=== PATIENT | female | born 1970 | race Two or more races ===

== ENCOUNTER 2019-06-23 11:46 | Emergency (ER) | payer MEDICAID ==
[~2019-06-23] VITALS: Ht 167.6 cm; Wt 70.3 kg
[2019-06-23] MEDS ORDERED: HYDROCODONE/APAP 10-325 MG TABLET ONE (12:15)
[2019-06-23] MEDS ORDERED: predniSONE 10 MG TABLET ONE (12:15)
[2019-06-23] MEDS ORDERED: predniSONE 20 MG TABLET PO ONE (12:15)
[2019-06-23] MEDS ORDERED: HYDROCODONE/APAP 10-325 MG TABLET PO ONE (12:15)
[2019-06-23] MEDS ORDERED: predniSONE 50 MG TABLET ONE (12:16)
--- NOTE | 2019-06-23 12:25 | NUR ---
Patient discharged to home in stable conditon. Written and verbal after care instructions given. Patient verbalizes understanding of instructions.pt with , not driving.
== END 2019-06-23 12:26 | disposition home or self-care (01) ==
LOC: ER 11:46
DX: M54.41 Lumbago with sciatica, right side (principal)
CPT/HCPCS: 99283; J7512 ×2; A4663

== ENCOUNTER 2019-06-26 12:02 | Emergency (ER) | payer MEDICAID ==
[~2019-06-26] VITALS: Ht 167.6 cm; Wt 79.4 kg
--- NOTE | 2019-06-26 12:07 | NUR ---
PATIENT BROUGHT IN BY [facility] FOR UNCONTROLLED BACK PAIN. PATIENT WAS PREVIOUSLY IN THE ER FOR SAME BACK PAIN BROUGHT MRI RESULTS FROM PREVIOUS VISIT. PATIENT REPORTED TAKING VICODIN AT HOME.
--- NOTE | 2019-06-26 12:14 | NUR ---
Ronni zayas in [facility] - 06/26/19 at 1228 by SYEDA REPORT GIVEN AT TO OCTOBER RN. PATIENT GOING TO ROOM 303.
--- NOTE | 2019-06-26 12:28 | NUR ---
PATIENT TO BE SEEN BY DOCTOR GUSTAVO
[2019-06-26] MEDS ORDERED: HYDROMORPHONE 1 MG/1 ML DISP.SYRIN IM ONE (12:30)
[2019-06-26] MEDS ORDERED: ONDANSETRON 4 MG/2 ML VIAL IM ONE (12:30)
[2019-06-26] MEDS ORDERED: ONDANSETRON 4 MG/2 ML VIAL ONE (12:31)
[2019-06-26] MEDS ORDERED: HYDROMORPHONE 2 MG/1 ML DISP.SYRIN ONE (12:31)
--- NOTE | 2019-06-26 12:45 | NUR ---
PATIENT REFUSING LAB DRAW FOR TEST. UNABLE TO DO RADIOLOGY EXAM IF THERE IS NO TEST DONE.
[2019-06-26] MEDS ORDERED: HYDROCODONE/APAP 10-325 MG TABLET ONE (13:04)
[2019-06-26 13:05] LABS: *URINE HCG, QUAL NEGATIVE (NEGATIVE)
[2019-06-26] MEDS ORDERED: HYDROCODONE/APAP 10-325 MG TABLET PO ONE (13:15)
[2019-06-26] MEDS ORDERED: KETOROLAC TROMETHAMINE 60 MG INJ IM ONE ×2 (13:15→14:57)
--- NOTE | 2019-06-26 13:52 | NUR ---
PENDING RADIOLOGY RESULTS
[2019-06-26] MEDS ORDERED: HYDROMORPHONE 1 MG/1 ML DISP.SYRIN IV ONE (14:30)
[2019-06-26] MEDS ORDERED: ONDANSETRON 4 MG/2 ML VIAL IV ONE (14:30)
--- NOTE | 2019-06-26 14:44 | NUR ---
CALLED RADIOLOGY PENDING RESULT READINGS
--- NOTE | 2019-06-26 15:10 | NUR ---
PATIENT GIVEN COPY OF CT RESULTS.
--- NOTE | 2019-06-26 15:15 | NUR ---
DISCHARGE PAPER WORK GIVEN AND PRESCRIPTIONS.SIGNED AND UNDERSTOOD AT BEDSIDE.
== END 2019-06-26 15:19 | disposition home or self-care (01) ==
LOC: ER 12:02
DX: M54.41 Lumbago with sciatica, right side (principal)
CPT/HCPCS: 72192; 84703; 96372 ×3; 99284; J1170; J1885; J2405; A4663

== ENCOUNTER 2019-08-11 09:50 | Emergency (ER) | payer MEDICAID ==
[~2019-08-11] VITALS: Ht 167.6 cm; Wt 74.8 kg
--- NOTE | 2019-08-11 10:34 | NUR ---
Patient discharged to home in stable conditon. Written and verbal after care instructions given. Patient verbalizes understanding of instructions. Patient ambulated with stable gait.
[2019-08-11 10:36] VITALS: BP 138/83
== END 2019-08-11 10:34 | disposition home or self-care (01) ==
LOC: ER 09:50
DX: K08.89 Other specified disorders of teeth and supporting structures (principal)
CPT/HCPCS: A4663

== ENCOUNTER 2019-09-26 21:23 | Emergency (ER) | payer MEDICAID ==
[~2019-09-26] VITALS: Ht 162.6 cm; Wt 72.6 kg
[2019-09-26] MEDS ORDERED: HYDROCODONE/APAP 5-325MG TABLET PO ONE (21:45)
--- NOTE | 2019-09-26 21:45 | NUR ---
PATIENT WAS MSE BY DR NOWAK IN ROOM 05A.
[2019-09-26] MEDS ORDERED: HYDROCODONE/APAP 5-325MG TABLET ONE (21:49)
[2019-09-26] MEDS ORDERED: ONDANSETRON 4 MG/2 ML VIAL ONE (22:03)
[2019-09-26] MEDS ORDERED: MORPHINE SULFATE 4 MG/1 ML DISP.SYRIN ONE (22:03)
[2019-09-26] MEDS ORDERED: ONDANSETRON ODT 4 MG TAB.RAPDIS ONE (22:08)
[2019-09-26] MEDS ORDERED: KETOROLAC TROMETHAMINE 30 MG INJ IM ONE (22:45)
[2019-09-26] MEDS ORDERED: ONDANSETRON ODT 4 MG TAB.RAPDIS SL ONE (22:45)
[2019-09-26] MEDS ORDERED: MORPHINE SULFATE 4 MG/1 ML DISP.SYRIN IM ONE (22:45)
[2019-09-26] MEDS ORDERED: KETOROLAC TROMETHAMINE 30 MG INJ ONE (22:50)
[2019-09-26] MEDS ORDERED: LIDOCAINE 5% PATCH TD ONE ×2 (23:15→23:27)
--- NOTE | 2019-09-26 23:41 | NUR ---
Patient discharged to home in stable condition. Written and verbal after care instructions given. Normal steady gait. Made aware of test results. Patient verbalizes understanding of instructions. Stressed follow up or return to ER for worsening s/s.
[2019-09-26 23:44] VITALS: BP 128/69
== END 2019-09-26 23:45 | disposition home or self-care (01) ==
LOC: ER 21:24
DX: T14.90XA Injury, unspecified, initial encounter (principal); S39.92XA Unspecified injury of lower back, initial encounter; S00.03XA Contusion of scalp, initial encounter; W01.0XXA Fall on same level from slipping, tripping and stumbling without subsequent striking against object, initial encounter; Y92.039 Unspecified place in apartment as the place of occurrence of the external cause; G89.29 Other chronic pain; M54.30 Sciatica, unspecified side; H91.90 Unspecified hearing loss, unspecified ear; R51 Headache; R40.2362 Coma scale, best motor response, obeys commands, at arrival to emergency department; R40.2142 Coma scale, eyes open, spontaneous, at arrival to emergency department; R40.2252 Coma scale, best verbal response, oriented, at arrival to emergency department
CPT/HCPCS: 70450; 72220; 96372 ×2; 99284; J1885; J2270; J2405; A4663; Q0162

== ENCOUNTER 2019-11-09 13:06 | Emergency (ER) | payer MEDICAID ==
[~2019-11-09] VITALS: Ht 167.6 cm; Wt 74.8 kg
--- NOTE | 2019-11-09 13:49 | NUR ---
[email or web address], medical screening exam in progress
[2019-11-09] MEDS ORDERED: CLINDAMYCIN HCL 150 MG CAPSULE PO ONE (14:00)
[2019-11-09] MEDS ORDERED: HYDROCODONE/APAP 5-325MG TABLET PO ONE (14:00)
[2019-11-09] MEDS ORDERED: IBUPROFEN 800 MG TABLET PO ONE (14:00)
[2019-11-09] MEDS ORDERED: HYDROCODONE/APAP 5-325MG TABLET ONE (14:05)
[2019-11-09] MEDS ORDERED: CLINDAMYCIN HCL 300 MG CAPSULE ONE (14:05)
[2019-11-09] MEDS ORDERED: IBUPROFEN 800 MG TABLET ONE (14:06)
[2019-11-09] MEDS ORDERED: IV NORMAL SALINE 1000 ML BAG IV ONE (14:15)
--- NOTE | 2019-11-09 14:23 | NUR ---
Patient is AOX4, refusing blood draw, IV line insertion, x-rays & CT scan, MD notified.
--- NOTE | 2019-11-09 14:36 | NUR ---
Patient does not wish to proceed with medical care recommended by Dr. Davis. Patient given information related to possible complications, up to and including , which could occur as a result of leaving the hospital at this time. Patient verbalizes understanding of risks involved due to leaving against medical advice. Patient has signed AMA form.
== END 2019-11-09 14:36 | disposition left against medical advice (07) ==
LOC: ER 13:07
DX: L03.211 Cellulitis of face (principal); R00.0 Tachycardia, unspecified; K02.9 Dental caries, unspecified; K04.01 Reversible pulpitis; K05.10 Chronic gingivitis, plaque induced
CPT/HCPCS: 93005; A4663; J7030

== ENCOUNTER 2019-11-10 08:37 | Emergency (ER) | payer MEDICAID ==
[~2019-11-10] VITALS: Ht 167.6 cm; Wt 74.8 kg
[2019-11-10] MEDS ORDERED: KETOROLAC TROMETHAMINE 30 MG INJ ONE (09:59)
[2019-11-10] MEDS ORDERED: KETOROLAC TROMETHAMINE 30 MG INJ IM ONE (10:00)
[2019-11-10] MEDS ORDERED: levoFLOXacin 750 MG TABLET PO ONE (10:00)
[2019-11-10] MEDS ORDERED: levoFLOXacin 750 MG TABLET ONE (10:05)
--- NOTE | 2019-11-10 10:05 | NUR ---
Patient discharged to home in stable condition. Written and verbal after care instructions given. Patient verbalizes understanding of instructions. Stressed follow up or return to ER for worsening s/s.
== END 2019-11-10 10:10 | disposition home or self-care (01) ==
LOC: ER 08:37
DX: L03.211 Cellulitis of face (principal); H91.90 Unspecified hearing loss, unspecified ear
CPT/HCPCS: 70486; 96372; 99284; J1885; A4663

== ENCOUNTER 2019-12-21 21:01 | Emergency (ER) | payer MEDICAID ==
[~2019-12-21] VITALS: Ht 167.6 cm; Wt 76.2 kg
--- NOTE | 2019-12-21 21:16 | NUR ---
Pt arrive at the ER with c/o palpitations and numbness/tingling in LUE since 1599.
--- NOTE | 2019-12-21 21:20 | NUR ---
Dr. Pleitez at bedside for MSE.
[2019-12-21] MEDS ORDERED: LORAZEPAM 1 MG TABLET ONE (21:37)
[2019-12-21] MEDS ORDERED: LORAZEPAM 0.5 MG TABLET PO ONE (21:45)
--- NOTE | 2019-12-21 22:19 | NUR ---
Patient discharged to home in stable condition. Written and verbal after care instructions given. Patient verbalizes understanding of instructions. Stressed follow up or return to ER for worsening s/s. Pt ambulated out of the ER with steady gait. All belongings with pt.
[2019-12-21 22:20] VITALS: BP 130/75
== END 2019-12-21 22:22 | disposition home or self-care (01) ==
LOC: ER 21:02
DX: R00.2 Palpitations (principal); R07.9 Chest pain, unspecified; H91.90 Unspecified hearing loss, unspecified ear
CPT/HCPCS: 71045; 93005; A4663

== ENCOUNTER 2020-01-25 23:34 | Emergency (ER) | payer MEDICAID ==
[~2020-01-25] VITALS: Ht 165.1 cm; Wt 77.1 kg
--- NOTE | 2020-01-26 00:13 | NUR ---
Dr. Kelly at bedside for MSE.
[2020-01-26 00:25] VITALS: BP 135/72
[2020-01-26] MEDS ORDERED: HYDROCODONE/APAP 10-325 MG TABLET ONE (00:25)
--- NOTE | 2020-01-26 00:25 | NUR ---
Patient discharged to home in stable condition. Written and verbal after care instructions given. Patient verbalizes understanding of instructions. Stressed follow up or return to ER for worsening s/s. patient left with stable gait.
[2020-01-26] MEDS ORDERED: HYDROCODONE/APAP 10-325 MG TABLET PO ONE (00:30)
== END 2020-01-26 00:26 | disposition home or self-care (01) ==
LOC: ER 23:39
DX: K08.89 Other specified disorders of teeth and supporting structures (principal); H91.90 Unspecified hearing loss, unspecified ear
CPT/HCPCS: A4663

== ENCOUNTER 2020-03-06 08:33 | Emergency (ER) | payer MEDICAID ==
[~2020-03-06] VITALS: Ht 165.1 cm; Wt 77.1 kg
[2020-03-06] MEDS ORDERED: HYDROCODONE/APAP 10-325 MG TABLET ONE (08:59)
[2020-03-06] MEDS ORDERED: HYDROCODONE/APAP 10-325 MG TABLET PO ONE (09:00)
--- NOTE | 2020-03-06 09:04 | NUR ---
Patient discharged to home in stable condition. Written and verbal after care instructions given. Patient verbalizes understanding of instructions. Stressed follow up or return to ER for worsening s/s.pt walks in steady gait. pt not driving
== END 2020-03-06 09:09 | disposition home or self-care (01) ==
LOC: ER 08:33
DX: M54.41 Lumbago with sciatica, right side (principal); H91.90 Unspecified hearing loss, unspecified ear
CPT/HCPCS: A4663

== ENCOUNTER 2020-03-18 08:11 | Emergency (ER) | payer MEDICAID ==
[~2020-03-18] VITALS: Ht 165.1 cm; Wt 77.1 kg
--- NOTE | 2020-03-18 08:37 | NUR ---
Dr Livingston at the bedside for MSE.
[2020-03-18 09:02] VITALS: BP 117/85
== END 2020-03-18 09:03 | disposition home or self-care (01) ==
LOC: ER 08:11
DX: K08.89 Other specified disorders of teeth and supporting structures (principal); M27.63 Post-osseointegration mechanical failure of dental implant; H91.90 Unspecified hearing loss, unspecified ear
CPT/HCPCS: A4663

== ENCOUNTER 2020-07-23 17:21 | Emergency (ER) | payer MEDICAID ==
[~2020-07-23] VITALS: Ht 165.1 cm; Wt 77.1 kg
[2020-07-23] MEDS ORDERED: CYCLOBENZAPRINE HCL 10 MG TABLET PO ONE (17:30)
[2020-07-23] MEDS ORDERED: HYDROCODONE/APAP 5-325MG TABLET PO ONE (17:30)
[2020-07-23] MEDS ORDERED: CYCL10TA9 PO (17:33)
[2020-07-23] MEDS ORDERED: HYDR-4209 PO (17:33)
[2020-07-23] MEDS ORDERED: CYCLOBENZAPRINE HCL 10 MG TABLET ONE (17:37)
[2020-07-23] MEDS ORDERED: HYDROCODONE/APAP 5-325MG TABLET ONE (17:38)
== END 2020-07-23 17:49 | disposition home or self-care (01) ==
LOC: ER 17:23
DX: M54.41 Lumbago with sciatica, right side (principal); Z87.828 Personal history of other (healed) physical injury and trauma; Z88.6 Allergy status to analgesic agent; H91.90 Unspecified hearing loss, unspecified ear
CPT/HCPCS: A4663

== ENCOUNTER 2020-08-19 10:43 | Emergency (ER) | payer MEDICAID ==
[~2020-08-19] VITALS: Ht 165.1 cm; Wt 77.1 kg
[~2020-08-19 10:43] MED LIST: CYCL10TA9 PO; HYDR-4209 PO
--- NOTE | 2020-08-19 11:20 | NUR ---
at bedside for assessment
[2020-08-19] MEDS ORDERED: HYDR-3972 PO (11:49)
[2020-08-19] MEDS ORDERED: ESCI10TA PO (11:49)
[2020-08-19] MEDS ORDERED: AMOX500C2 PO (11:49)
[2020-08-19 11:54] VITALS: BP 128/82
--- NOTE | 2020-08-19 12:01 | NUR ---
Patient discharged to home in stable condition. Able to ambulate, no signs of acute distress noted. Written and verbal after care instructions given. Patient verbalizes understanding of instructions. Stressed follow up or return to ER for worsening s/s.
== END 2020-08-19 12:00 | disposition home or self-care (01) ==
LOC: ER 10:43
DX: K08.89 Other specified disorders of teeth and supporting structures (principal); G89.29 Other chronic pain; Z76.0 Encounter for issue of repeat prescription; F41.9 Anxiety disorder, unspecified; M54.30 Sciatica, unspecified side; H91.90 Unspecified hearing loss, unspecified ear
CPT/HCPCS: A4663

== ENCOUNTER 2020-09-04 12:10 | Emergency (ER) | payer MEDICAID ==
[~2020-09-04] VITALS: Ht 165.1 cm; Wt 77.1 kg
[~2020-09-04 12:10] MED LIST changes: +AMOX500C2 PO; +ESCI10TA PO; +HYDR-3972 PO
[2020-09-04] MEDS ORDERED: HYDROCODONE/APAP 10-325 MG TABLET PO ONE (12:30)
[2020-09-04] MEDS ORDERED: HYDROCODONE/APAP 10-325 MG TABLET ONE (12:40)
--- NOTE | 2020-09-04 12:45 | NUR ---
Patient discharged to home in stable condition. Written and verbal after care instructions given. Patient verbalizes understanding of instructions. Stressed follow up or return to ER for worsening s/s. Patient walked with steady gait. Pt. verbalized understanding to not drive home.
== END 2020-09-04 12:37 | disposition home or self-care (01) ==
LOC: ER 12:10
DX: K08.89 Other specified disorders of teeth and supporting structures (principal); M54.31 Sciatica, right side; Z76.0 Encounter for issue of repeat prescription; H91.90 Unspecified hearing loss, unspecified ear
CPT/HCPCS: A4663

== ENCOUNTER 2020-10-09 18:37 | Emergency (ER) | payer MEDICAID ==
[~2020-10-09] VITALS: Ht 170.2 cm; Wt 68.0 kg
--- NOTE | 2020-10-09 19:50 | NUR ---
Dr. Jones at bedside for MSE.
[2020-10-09] MEDS ORDERED: OXYC-128 PO (20:05)
[2020-10-09] MEDS ORDERED: HYDROMORPHONE 1 MG/1 ML DISP.SYRIN IM ONE (20:15)
[2020-10-09] MEDS ORDERED: ONDANSETRON ODT 4 MG TAB.RAPDIS SL ONE (20:15)
[2020-10-09] MEDS ORDERED: ONDANSETRON ODT 4 MG TAB.RAPDIS ONE (20:21)
[2020-10-09] MEDS ORDERED: HYDROMORPHONE 1 MG/1 ML DISP.SYRIN ONE (20:21)
[2020-10-09] MEDS ORDERED: HYDROMORPHONE 2 MG/1 ML DISP.SYRIN ONE (20:22)
[2020-10-09 20:52] VITALS: BP 119/96
== END 2020-10-09 20:36 | disposition home or self-care (01) ==
LOC: ER 18:37
DX: M51.17 Intervertebral disc disorders with radiculopathy, lumbosacral region (principal); R00.0 Tachycardia, unspecified; H91.90 Unspecified hearing loss, unspecified ear; R03.0 Elevated blood-pressure reading, without diagnosis of hypertension
CPT/HCPCS: 96372; 99283; J1170 ×2; A4663; Q0162

== ENCOUNTER 2020-10-24 13:28 | Emergency (ER) | payer MEDICAID ==
[~2020-10-24] VITALS: Ht 167.6 cm; Wt 74.4 kg
[~2020-10-24 13:28] MED LIST changes: +OXYC-128 PO
[2020-10-24] MEDS ORDERED: ONDANSETRON 4 MG/2 ML VIAL IM ONE (13:45)
[2020-10-24] MEDS ORDERED: HYDROMORPHONE 1 MG/1 ML DISP.SYRIN IM ONE (13:45)
[2020-10-24] MEDS ORDERED: HYDROMORPHONE 2 MG/1 ML DISP.SYRIN ONE (13:55)
[2020-10-24] MEDS ORDERED: ONDANSETRON 4 MG/2 ML VIAL ONE (13:55)
[2020-10-24] MEDS ORDERED: ONDANSETRON ODT 4 MG TAB.RAPDIS ONE (13:58)
[2020-10-24] MEDS ORDERED: ONDANSETRON ODT 4 MG TAB.RAPDIS SL ONE (14:00)
--- NOTE | 2020-10-24 14:05 | NUR ---
Patient discharged to home in stable condition. Written and verbal after care instructions given. Patient verbalizes understanding of instructions. Stressed follow up or return to ER for worsening s/s.pt walks in steady gait. pt out side to take the pt home.
== END 2020-10-24 14:06 | disposition home or self-care (01) ==
LOC: ER 13:28
DX: M54.41 Lumbago with sciatica, right side (principal); Z88.6 Allergy status to analgesic agent; H91.90 Unspecified hearing loss, unspecified ear; Z87.81 Personal history of (healed) traumatic fracture
CPT/HCPCS: 96372; 99283; J1170; A4663; J2405; Q0162

== ENCOUNTER 2020-10-31 19:31 | Emergency (ER) | payer MEDICAID ==
[~2020-10-31] VITALS: Ht 167.6 cm; Wt 76.7 kg
--- NOTE | 2020-10-31 19:40 | NUR ---
Came in to ER c/o R knee pain radiating to backof knee and R thigh. To room 1A; patient very anxious, moaning and groaning. Advised appropriately. VS stable. Seen and evaluated by Dr. Davis.
[2020-10-31] MEDS ORDERED: ACETAMINOPHEN ES 500 MG TABLET PO ONE (20:00)
[2020-10-31] MEDS ORDERED: OXYCODONE/APAP 5-325 MG TABLET PO STA (20:02)
[2020-10-31] MEDS ORDERED: OXYCODONE/APAP 5-325 MG TABLET ONE (20:11)
--- NOTE | 2020-10-31 21:00 | NUR ---
Sleeping after Percocet; still awaiting for Duplex studies of LEs.
--- NOTE | 2020-10-31 21:43 | NUR ---
Ultrasound of LEs done at bedside.
--- NOTE | 2020-10-31 22:15 | NUR ---
Dr. Davis discussed results of Xrays and Ultrasound with patient. Mildly agitated; wanting prescription for pain meds. Advised by Dr. Davis.
--- NOTE | 2020-10-31 22:20 | NUR ---
Patient discharged to home in stable condition. Written and verbal after care instructions given. Patient verbalizes understanding of instructions. Stressed follow up with PMD and pain management MD.
--- NOTE | 2020-10-31 22:20 | NUR ---
DC walking with steady gait.
[2020-10-31 22:28] VITALS: BP 118/75
== END 2020-10-31 22:20 | disposition home or self-care (01) ==
LOC: ER 19:31
DX: M51.17 Intervertebral disc disorders with radiculopathy, lumbosacral region (principal); Z99.3 Dependence on wheelchair; H90.3 Sensorineural hearing loss, bilateral; Z88.6 Allergy status to analgesic agent; M25.561 Pain in right knee; Z76.5 Malingerer [conscious simulation]; F11.20 Opioid dependence, uncomplicated; Z87.81 Personal history of (healed) traumatic fracture
CPT/HCPCS: 73562; A4663

== ENCOUNTER 2020-11-06 12:41 | Emergency (ER) | payer MEDICAID ==
[~2020-11-06] VITALS: Ht 167.6 cm; Wt 77.1 kg
--- NOTE | 2020-11-06 13:03 | NUR ---
Dr kelley at the bedside for MSE.
[2020-11-06] MEDS ORDERED: ONDANSETRON ODT 4 MG TAB.RAPDIS SL ONE (13:15)
[2020-11-06] MEDS ORDERED: HYDROMORPHONE 1 MG/1 ML DISP.SYRIN IM ONE (13:15)
[2020-11-06] MEDS ORDERED: ONDANSETRON ODT 4 MG TAB.RAPDIS ONE (13:23)
[2020-11-06] MEDS ORDERED: HYDROMORPHONE 2 MG/1 ML DISP.SYRIN ONE (13:23)
--- NOTE | 2020-11-06 13:38 | NUR ---
Patient is resting comfortably in bed, talking on the phone.
[2020-11-06] MEDS ORDERED: OXYC-133 PO ×2 (14:00→14:59)
[2020-11-06 14:05] VITALS: BP 132/70
[2020-11-07] MEDS ORDERED: HYDR-3980 PO (20:39)
[2020-11-07] MEDS ORDERED: OXYC-128 PO (20:40)
== END 2020-11-06 14:06 | disposition home or self-care (01) ==
LOC: ER 12:42
DX: M54.5 Low back pain (principal); G89.29 Other chronic pain; Z87.81 Personal history of (healed) traumatic fracture; Z88.6 Allergy status to analgesic agent; H91.90 Unspecified hearing loss, unspecified ear; F41.9 Anxiety disorder, unspecified
CPT/HCPCS: 96372; 99283; J1170; A4663; Q0162

== ENCOUNTER 2020-11-07 19:44 | Emergency (ER) | payer MEDICAID ==
[~2020-11-07] VITALS: Ht 167.6 cm; Wt 72.6 kg
[~2020-11-07 19:44] MED LIST changes: +OXYC-133 PO
--- NOTE | 2020-11-07 19:57 | NUR ---
Pt ambulated to ER, came in for medication refill. A/O x4, no SOB or labored breathing, afebrile. No c/o chest pain/pressure.
--- NOTE | 2020-11-07 20:25 | NUR ---
Dr. Jones at bedside, MSE in progress.
[2020-11-07] MEDS ORDERED: HYDR-3980 PO (20:39)
[2020-11-07] MEDS ORDERED: OXYC-128 PO (20:40)
[2020-11-07] MEDS ORDERED: ONDANSETRON HCL 4 MG TABLET PO ONE (20:45)
[2020-11-07] MEDS ORDERED: HYDROMORPHONE 1 MG/1 ML DISP.SYRIN IM ONE (20:45)
[2020-11-07] MEDS ORDERED: ONDANSETRON HCL 4 MG TABLET ONE (20:49)
[2020-11-07] MEDS ORDERED: HYDROMORPHONE 1 MG/1 ML DISP.SYRIN ONE (20:50)
--- NOTE | 2020-11-07 20:59 | NUR ---
Patient discharged to home in stable condition, A/O x4, no SOB or labored breathing. Pain medication noted to be effective. Written and verbal after care instructions given. Patient verbalizes understanding of instructions. Stressed follow up or return to ER for worsening s/s. Picked up by family. Steady gait.
[2020-11-07 21:02] VITALS: BP 110/62
== END 2020-11-07 21:02 | disposition home or self-care (01) ==
LOC: ER 19:56
DX: G89.21 Chronic pain due to trauma (principal); S32.10XS Unspecified fracture of sacrum, sequela; S32.9XXS Fracture of unspecified parts of lumbosacral spine and pelvis, sequela; X58.XXXS Exposure to other specified factors, sequela; H91.90 Unspecified hearing loss, unspecified ear; Z88.6 Allergy status to analgesic agent
CPT/HCPCS: 96372; 99283; J1170; A4663; Q0162

== ENCOUNTER 2020-12-03 15:18 | Emergency (ER) | payer MEDICAID ==
[~2020-12-03] VITALS: Ht 167.6 cm; Wt 72.6 kg
[~2020-12-03 15:18] MED LIST changes: +HYDR-3980 PO
[2020-12-03] MEDS ORDERED: HYDROMORPHONE 1 MG/1 ML DISP.SYRIN IM ONE (19:00)
[2020-12-03] MEDS ORDERED: OXYC-133 PO ×2 (19:01→19:39)
[2020-12-03] MEDS ORDERED: HYDROMORPHONE 1 MG/1 ML DISP.SYRIN ONE (19:16)
--- NOTE | 2020-12-03 19:40 | NUR ---
Patient discharged to home in stable condition. Written and verbal after care instructions given. Patient verbalizes understanding of instructions. Stressed follow up or return to ER for worsening s/s.pt walks in steady gait.
== END 2020-12-03 19:47 | disposition home or self-care (01) ==
LOC: ER 15:18
DX: M54.5 Low back pain (principal); Z76.0 Encounter for issue of repeat prescription; Z88.6 Allergy status to analgesic agent; H91.90 Unspecified hearing loss, unspecified ear
CPT/HCPCS: 96372; 99283; J1170; A4663

== ENCOUNTER 2020-12-08 19:32 | Emergency (ER) | payer MEDICAID ==
[~2020-12-08] VITALS: Ht 167.6 cm; Wt 74.4 kg
--- NOTE | 2020-12-08 19:46 | NUR ---
Pt came from home, c/o back pain past 2 weeks. Pt states she has a tailbone fracture and needs pain medication until she can see her referral on 12/18/20.
--- NOTE | 2020-12-08 19:50 | NUR ---
Dr. Wilson at bedside for mse.
[2020-12-08] MEDS ORDERED: HYDR-3980 PO (20:08)
[2020-12-08] MEDS ORDERED: HYDROCODONE/APAP 10-325 MG TABLET ONE (20:13)
--- NOTE | 2020-12-08 20:14 | NUR ---
Patient discharged to home in stable condition. Written and verbal after care instructions given. Patient verbalizes understanding of instructions. Stressed follow up or return to ER for worsening s/s. Patient out of ER with steady gait, no acute signs of distress, VSS, all belongings taken. Pt. verbalizes understanding to not drive home, states her is driving her.
[2020-12-08 20:15] VITALS: BP 118/84
[2020-12-08] MEDS ORDERED: HYDROCODONE/APAP 10-325 MG TABLET PO ONE (20:15)
== END 2020-12-08 20:16 | disposition home or self-care (01) ==
LOC: ER 19:33
DX: G89.29 Other chronic pain (principal); M54.30 Sciatica, unspecified side; Z76.0 Encounter for issue of repeat prescription; H91.90 Unspecified hearing loss, unspecified ear; R47.81 Slurred speech; Z87.81 Personal history of (healed) traumatic fracture
CPT/HCPCS: A4663

== ENCOUNTER 2021-02-01 07:11 | Emergency (ER) | payer MEDICAID ==
[~2021-02-01] VITALS: Ht 170.2 cm; Wt 74.8 kg
[2021-02-01] MEDS ORDERED: ACETAMINOPHEN 325 MG TABLET PO ONE (07:45)
[2021-02-01] MEDS ORDERED: LIDOCAINE VISCUS 2% 15 ML UDC MM ONE (07:45)
[2021-02-01] MEDS ORDERED: ACET-2154 PO (07:46)
[2021-02-01] MEDS ORDERED: NAPH15DR68 OP (07:46)
[2021-02-01] MEDS ORDERED: IBUP-1955 PO (07:46)
[2021-02-01] MEDS ORDERED: LIDOCAINE VISCUS 2% 15 ML UDC ONE (07:50)
[2021-02-01] MEDS ORDERED: ACETAMINOPHEN 325 MG TABLET ONE (07:50)
--- NOTE | 2021-02-01 08:08 | NUR ---
PT WAS EVALUATED BY DR GUNDERSON . PT WAS D/C'd TO HOME. D/C INSTRUCTIONS GIVEN TO THE PT BY DR GUNDERSON.
[2021-02-01 08:10] VITALS: BP 132/84
== END 2021-02-01 08:10 | disposition home or self-care (01) ==
LOC: ER 07:14
DX: H10.10 Acute atopic conjunctivitis, unspecified eye (principal); K02.9 Dental caries, unspecified
CPT/HCPCS: A4663

== ENCOUNTER 2021-02-05 01:36 | Emergency (ER) | payer MEDICAID ==
[~2021-02-05] VITALS: Ht 170.2 cm; Wt 67.6 kg
[~2021-02-05 01:36] MED LIST changes: +ACET-2154 PO; +IBUP-1955 PO; +NAPH15DR68 OP
--- NOTE | 2021-02-05 03:00 | NUR ---
Pt co toothache starting 6 days ago.
[2021-02-05] MEDS ORDERED: HYDROMORPHONE 1 MG/1 ML DISP.SYRIN IM ONE ×2 (03:15→03:45)
[2021-02-05] MEDS ORDERED: ONDANSETRON 4 MG/2 ML VIAL IM ONE (03:15)
[2021-02-05] MEDS ORDERED: ONDANSETRON 4 MG/2 ML VIAL ONE (03:16)
[2021-02-05] MEDS ORDERED: HYDROMORPHONE 1 MG/1 ML DISP.SYRIN ONE ×2 (03:16→04:03)
[2021-02-05] MEDS ORDERED: CLIN300C12 PO (04:25)
--- NOTE | 2021-02-05 04:33 | NUR ---
Patient discharged to home in stable condition. Written and verbal after care instructions given. Patient verbalizes understanding of instructions. Stressed follow up or return to ER for worsening s/s. Pt instructed not to drive. Pt walks with steady gait. NAD. VSS. Pt took all belongings with her.
[2021-02-05] MEDS ORDERED: OXYC-133 PO (04:39)
[2021-02-05 06:50] VITALS: BP 139/87
== END 2021-02-05 04:33 | disposition home or self-care (01) ==
LOC: ER 01:38
DX: K08.89 Other specified disorders of teeth and supporting structures (principal); Z88.6 Allergy status to analgesic agent; H91.90 Unspecified hearing loss, unspecified ear
CPT/HCPCS: 96372 ×2; 99284; J1170 ×2; J2405; A4663

== ENCOUNTER 2021-02-11 21:00 | Emergency (ER) | payer MEDICAID ==
[~2021-02-11] VITALS: Ht 167.6 cm; Wt 79.4 kg
[~2021-02-11 21:00] MED LIST changes: +CLIN300C12 PO
[2021-02-11] MEDS ORDERED: CLIN300C3 PO (22:19)
[2021-02-11] MEDS ORDERED: OXYC-128 PO (22:19)
--- NOTE | 2021-02-11 22:35 | NUR ---
PATIENT WAS MSE BY DR VÁZQUEZ IN ROOM 05B.
[2021-02-11 22:50] VITALS: BP 125/74
== END 2021-02-11 22:50 | disposition home or self-care (01) ==
LOC: ER 21:01
DX: K08.89 Other specified disorders of teeth and supporting structures (principal); G89.18 Other acute postprocedural pain; F41.9 Anxiety disorder, unspecified; Z79.899 Other long term (current) drug therapy
CPT/HCPCS: A4663

== ENCOUNTER 2021-04-07 19:53 | Emergency (ER) | payer MEDICAID ==
[~2021-04-07] VITALS: Ht 167.6 cm; Wt 81.2 kg
[~2021-04-07 19:53] MED LIST changes: +CLIN300C3 PO
--- NOTE | 2021-04-07 20:25 | NUR ---
Seen and examined by Dr. Jones.
[2021-04-07] MEDS ORDERED: OXYCODONE/APAP 5-325 MG TABLET PO ONE (20:30)
[2021-04-07] MEDS ORDERED: OXYC-128 PO (20:38)
[2021-04-07] MEDS ORDERED: OXYCODONE/APAP 5-325 MG TABLET ONE (20:43)
--- NOTE | 2021-04-07 20:45 | NUR ---
Patient discharged to home in stable condition. Written and verbal after care instructions given. Patient verbalizes understanding of instructions. Stressed follow up or return to ER for worsening s/s. Instructed not to drive. To be driven home by a private vehicle.
[2021-04-07 21:20] VITALS: BP 129/90
== END 2021-04-07 20:45 | disposition home or self-care (01) ==
LOC: ER 19:58
DX: U07.1 COVID-19 (principal); Z88.6 Allergy status to analgesic agent; Z88.5 Allergy status to narcotic agent
CPT/HCPCS: A4663

== ENCOUNTER 2022-01-06 01:17 | Emergency (ER) | payer MEDICAID ==
[~2022-01-06] VITALS: Ht 167.6 cm; Wt 88.5 kg
[2022-01-06] MEDS ORDERED: HYDR-3980 PO (01:54)
[2022-01-06] MEDS ORDERED: LORA-259 PO (01:54)
[2022-01-06] MEDS ORDERED: HYDROCODONE/APAP 10-325 MG TABLET ONE (02:00)
[2022-01-06] MEDS ORDERED: HYDROCODONE/APAP 10-325 MG TABLET PO ONE (02:00)
--- NOTE | 2022-01-06 02:15 | NUR ---
Patient discharged to home in stable condition with [facility] taking patient home. Written and verbal after care instructions given. Patient verbalizes understanding of instructions. Stressed follow up or return to ER for worsening s/s.
[2022-01-06 02:16] VITALS: BP 128/72
== END 2022-01-06 02:16 | disposition home or self-care (01) ==
LOC: ER 01:23
DX: M51.17 Intervertebral disc disorders with radiculopathy, lumbosacral region (principal); K08.89 Other specified disorders of teeth and supporting structures
CPT/HCPCS: A4663